=== PATIENT | female | born 1945 | race Caucasian/White ===

== ENCOUNTER → 2020-06-14 12:18 | Outpatient (CLI) | payer MEDICARE, SELFPAY ==
--- NOTE | ~2020-06-14 | MM_ITS ---
EXAMINATION: MM screening paula BI w narda HISTORY: Screening mammogram, family history of breast cancer in her mother. TECHNIQUE: Craniocaudal and mediolateral oblique 3-D tomosynthesis images were obtained and synthetic 2-D images were generated. CAD analysis was submitted and interpreted. COMPARISON: 07/14/2018, 06/24/2017, 06/21/2016 BREAST PARENCHYMAL COMPOSITION: There are scattered areas of fibroglandular density. FINDINGS: Scattered benign-appearing calcifications are present. There is no evidence of suspicious m ass, calcification, or architectural distortion to suggest malignancy in either breast. There has bee n no suspicious interval change. IMPRESSION: 1. No mammographic evidence of malignancy. 2. Recommend routine screening mammography in one year. BI-RADS Category 2: Benign finding(s). Reviewed, dictated and finalized at location A. ANALYST
== END ==
PROVIDERS: PCP Family Medicine; Visit Provider Family Medicine
DX: Z12.31 Encounter for screening mammogram for malignant neoplasm of breast (principal)
CPT/HCPCS: 77063; 77067

== ENCOUNTER 2020-06-15 09:00 | Outpatient (CLI) | payer MEDICARE, SELFPAY ==
[2020-06-15 09:15] LABS: Basophils Absolute Auto 0.1 K/mm3 (0.0-0.1); Basophils Percent Auto 0.9 % (0.2-1.2); Eosinophils Absolute Auto 0.2 K/mm3 (0-0.3); Eosinophils Percent Auto 4.1 % (0-4.4); Hematocrit 40.9 % (37.0-47.0); Hemoglobin 13.1 g/dL (12.0-15.0); Immature Granulocyte Absolute 0.01 K/mm3 (0.00-0.031); Immature Granulocyte Percent A 0.2 % (0-0.5); Lymphocytes Absolute Auto 1.21 K/mm3 (0.9-3.2); Lymphocytes Percent Auto 22.8 % (18.3-44.2); Mean Corpuscular Volume 93.8 fl (80-100); Mean Platelet Volume 11.2 fl (7.4-10.4); Monocytes Absolute Auto 0.4 K/mm3 (0.1-0.6); Monocytes Percent Auto 7.7 % (2.6-8.5); Neutrophils Absolute Auto 3.4 K/mm3 (1.3-6.7); Neutrophils Percent Auto 64.3 % (45.5-73.1); Platelet Count Result 251 k/mm3 (150-375); Red Blood Count 4.36 M/mm3 (4.2-5.4); Red Cell Distribution Width 14.5 % (11.5-14.5); White Blood Count 5.3 K/mm3 (4.5-10.0)
[2020-06-15 09:31] LABS: Alanine Aminotransferase 15 U/L (4-35); Albumin Level 4.4 g/dL (3.5-5.1); Alkaline Phosphatase 66 U/L (38-126); Anion Gap 6 mmol/L (8-16); Aspartate Amino Transferase 30 U/L (14-36); Bilirubin,Total 0.7 mg/dL (0.2-1.3); Blood Urea Nitrogen 14 mg/dL (7-17); Calcium 9.6 mg/dL (8.4-10.2); Carbon Dioxide 34 mmol/L (22-30); Chloride 103 mmol/L (98-107); Cholesterol 211 mg/dL (0-200); Estimated Glomerular Filt Rate > 60; Glucose 98 mg/dL (65-105); HDL Direct 65 mg/dL; Potassium 4.3 mmol/L (3.4-5.0); Sodium 143 mmol/L (137-145); Triglycerides 132 mg/dL (<150)
[2020-06-15 09:42] LABS: LDL Cholesterol Direct 116 mg/dL
[2020-06-15 10:19] LABS: Vitamin B12 > 1000.0 pg/mL (239-931)
== END 2020-06-15 09:01 | disposition home or self-care (01) ==
PROVIDERS: PCP Family Medicine; Visit Provider Family Medicine
DX: D64.9 Anemia, unspecified (principal); I10 Essential (primary) hypertension; E78.2 Mixed hyperlipidemia
CPT/HCPCS: 36415; 80053; 80061; 82607; 85025

== ENCOUNTER 2021-08-25 20:25 | Emergency (ER) | payer OTHER, SELFPAY ==
[2021-08-25 20:28] VITALS: BP 152/70; PULSE 85; RESP 17; TEMP 36.8; O2SAT 97
--- NOTE | 2021-08-25 20:58 | ED.FEMALEGU ---
HPI - Female Genitourinary General Chief complaint: Urogenital-Female Stated complaint: hematuria x today Time Seen by Provider: 08/25/21 20:49 Source: patient History of Present Illness HPI Narrative: Patient presents with hematuria frequency and urgency. Patient ports her symptoms started today she was concerned so came to the ER for evaluation. Denies any fevers, nausea, vomiting she denies any back pain. She is found she has a urinary tract infection. Related Data Home Medications Medication Instructions Recorded Confirmed escitalopram oxalate 5 mg PO DAILY PRN 08/25/21 lisinopril 10 mg PO DAILY 08/25/21 Allergies Allergy/AdvReac Type Severity Reaction Status Date / Time Sulfa (Sulfonamide Allergy Other Verified 08/25/21 20:31 Antibiotics) Review of Systems Review of Systems: CONSTITUTIONAL: Denies fever, chills, or sweats. EYES: Denies visual changes, redness, or discharge. ENT: Denies rhinorrhea, congestion, sore throat, or otalgia. CARDIOVASCULAR: Denies chest pain, palpitations, or edema. RESPIRATORY: Denies cough or dyspnea. GASTROINTESTINAL: Denies abdominal pain, nausea, vomiting, or diarrhea. GENITOURINARY: Denies dysuria or hematuria. SKIN: Denies rash or itching. MUSCULOSKELETAL: Denies back pain, joint pain, or myalgia. NEUROLOGIC: Denies headache, numbness, dizziness, or weakness. PSYCHIATRIC: Denies anxiety or depression. All systems reviewed & are unremarkable except as noted in HPI and below PMFSH Past Medical History Medical History (Updated 08/25/21 @ 22:13 by Cristobal Lopez MD) Hypertension Social History Social History (Updated 08/25/21 @ 21:00 by Cristobal Lopez MD) Smoking status: Never smoker Substance use: never Exam Narrative: GENERAL: Well-appearing, well-nourished, and in no acute distress. HEAD: Normocephalic, atraumatic. EYES: PERRLA and EOMI. ENT: Nares clear, no rhinorrhea or epistaxis. Mucous membranes moist. NECK: Supple. No masses. No JVD ABDOMEN: Minimal suprapubic pain no CVA tenderness abdomen is soft nondistended EXTREMITIES: Normal range of motion. No edema. SKIN: Warm, dry, no rash. NEURO: No focal deficits. Alert and oriented x3. PSYCH: Normal mood and affect. Course Reevaluation(s) Reevaluation #1: Patient was comfortable results reviewed with patient. Patient comfortable outpatient plan. Date: 08/25/21 Time: 22:11 Vital Signs Vital signs: Vital Signs Temperature 36.8 C 08/25/21 20:28 Pulse Rate 85 08/25/21 20:28 Respiratory Rate 17 08/25/21 20:28 Blood Pressure 152/70 H 08/25/21 20:28 Pulse Oximetry 97 08/25/21 20:28 Temperature 37.1 C 08/25/21 22:22 Pulse Rate 74 08/25/21 22:22 Respiratory Rate 16 08/25/21 22:22 Blood Pressure 138/82 08/25/21 22:22 Pulse Oximetry 98 08/25/21 22:22 MDM - Female Genitourinary MDM Narrative Medical decision making narrative: H&P as above, vss, pt looks clinically well, exam reassuring, UA concerning for infection, additional labs/img considered, symptomatic relief available as needed, on reevaluation pt continues to looks clinically well. Suspect UTI, dns pyelonephritis, severe sepsis, severe dehydration. plan to tx/monitor as op w/ pcm f/u findings/plan discussed with pt, pt agree/comfortable with plan, return precautions given Lab Data Attestation: I reviewed the patient's lab results. Labs: Lab Results 08/25/21 Range/Units 21:13 Urine Color Red H (Yellow) Urine Appearance Turbid H (Clear) Urine pH 5.0 (5.0-9.0) Ur Specific [place] 1.006 (1.001-1.035) Urine Protein 1+ H (Negative) mg/dL Urine Glucose (UA) Negative (Negative) mg/dL Urine Ketones Negative (Negative) mg/dL Ur Blood (Man) 3+ H (Negative) Urine Nitrate Negative (Negative) Urine Bilirubin Negative (Negative) Urine Urobilinogen Negative (<2.0) mg/dL Leukocyte Esterase Rfl Trace H (Negative) MEAGHAN/UL Urine RBC >75 H (0-2) /hpf Urine WBC >7
[2021-08-25 21:45] LABS: Add Urine Microscopic? YES; Bacteria Urine Trace /hpf; Bilirubin Urine Negative (Negative); Blood Urine 3+ (Negative); Glucose Urine UA Negative (Negative); Ketones Urine Negative (Negative); Leukocyte Esterase Ur Trace LEU/UL (Negative); Nitrate Urine Negative (Negative); Protein Urine 1+ mg/dL (Negative); RBC Urine >75 /hpf (0-2); Specific Grav Ur 1.006 (1.001-1.035); Urobilinogen Urine Negative mg/dL (<2.0); WBC Urine >75 /hpf
[2021-08-25 21:46] LABS: Appearance Urine Turbid (Clear); Color Urine Red (Yellow)
[2021-08-25 22:22] VITALS: BP 138/82; PULSE 74; RESP 16; TEMP 37.1; O2SAT 98
== END 2021-08-25 22:23 | disposition home or self-care (01) ==
PROVIDERS: Emergency Provider Emergency Medicine; PCP Family Medicine
DX: N30.01 Acute cystitis with hematuria (principal); I10 Essential (primary) hypertension
CPT/HCPCS: 81001; 87077; 87086; 87186; 99283

== ENCOUNTER 2022-08-03 17:00 | Emergency (ER) | payer MEDICARE, SELFPAY ==
--- NOTE | ~2022-08-03 | XR_ITS ---
EXAMINATION: XR chest 1V portable Exam Date/Time: 08/03/2022 19:45 TOOL SHARPENER HISTORY: Covid +, SOB Comparison: 03/06/2019. RESULT: Lines, tubes, and devices: None. Lungs and pleura: No focal consolidation, effusion, or pneumothorax. Right lung granuloma. Cardiomediastinal silhouette: Stable. Large hiatal hernia. Other: No acute osseous or upper abdominal finding. IMPRESSION: No acute cardiopulmonary process. Reviewed, dictated and finalized at location K. SHARPENER
[2022-08-03 17:13] VITALS: BP 152/79; PULSE 87; RESP 18; TEMP 36.4; O2SAT 96
[2022-08-03 17:21] LABS: Basophils Percent Auto 0.4 % (0.2-1.2); Eosinophils Absolute Auto 0.1 K/mm3 (0-0.3); Eosinophils Percent Auto 0.6 % (0-4.4); Hematocrit 39.5 % (37.0-47.0); Hemoglobin 12.6 g/dL (12.0-15.0); Immature Granulocyte Absolute 0.02 K/mm3 (0.00-0.031); Immature Granulocyte Percent A 0.2 % (0-0.5); Lymphocytes Absolute Auto 0.43 K/mm3 (0.9-3.2); Lymphocytes Percent Auto 4.8 % (18.3-44.2); Mean Corpuscular HGB Conc 31.9 g/dl (32-36); Mean Corpuscular Hemoglobin 30.4 pg (26-34); Mean Corpuscular Volume 95.2 fl (80-100); Mean Platelet Volume 10.9 fl (7.4-10.4); Monocytes Absolute Auto 0.5 K/mm3 (0.1-0.6); Monocytes Percent Auto 5.8 % (2.6-8.5); Neutrophils Absolute Auto 7.9 K/mm3 (1.3-6.7); Neutrophils Percent Auto 88.2 % (45.5-73.1); Platelet Count Result 213 k/mm3 (150-375); Red Blood Count 4.15 M/mm3 (4.2-5.4); Red Cell Distribution Width 14.2 % (11.5-14.5); White Blood Count 8.9 K/mm3 (4.5-10.0)
[2022-08-03 17:31] LABS: Alanine Aminotransferase 18 U/L (6-35); Albumin Level 4.3 g/dL (3.5-5.1); Alkaline Phosphatase 65 U/L (38-126); Anion Gap 8 mmol/L (8-16); Aspartate Amino Transferase 26 U/L (14-36); Bilirubin,Total 0.6 mg/dL (0.2-1.3); Blood Urea Nitrogen 9 mg/dL (7-17); Calcium 8.6 mg/dL (8.4-10.2); Carbon Dioxide 25 mmol/L (22-30); Chloride 100 mmol/L (98-107); Estimated CRCL calculation 54 ml/min; Estimated Glomerular Filt Rate > 60; Glucose 119 mg/dL (65-110); Lipase 66 U/L (23-300); Potassium 3.9 mmol/L (3.4-5.0); Sodium 133 mmol/L (137-145)
[2022-08-03 17:56] LABS: Influenza A QL RT-PCR Negative (Negative); Influenza B QL RT-PCR Negative (Negative); SARS-CoV-2 RNA PCR Positive
--- NOTE | 2022-08-03 19:10 | ED.GENADULT ---
HPI - General Adult General Chief complaint: Unspecified Stated complaint: flu like symptoms Time Seen by Provider: 08/03/22 19:07 History of Present Illness HPI narrative: This is a 76-year-old female presenting ED with 1 day of flu-like symptoms. Headaches include headache, body aches, chills, nausea without vomiting And fatigue. Patient denies vomiting, diarrhea, chest pain, difficulty breathing or lower extremity edema. Patient denies sick contacts at home. She is vaccinated against flu and COVID. Patient notes normal p.o. intake. Patient came to the hospital because her brother encouraged her to get checked out. Related Data Allergies Allergy/AdvReac Type Severity Reaction Status Date / Time Sulfa (Sulfonamide Allergy Other Verified 10/29/21 13:09 Antibiotics) [facility] Past Medical History Medical History Anemia Arthritis BP (high blood pressure) Endometriosis HH (hiatus hernia) Hypertension MDD (major depressive disorder), recurrent episode Mixed hyperlipidemia Surgical History Surgical History S/P QUINTON-BSO Family History Family History Mother Family history of malignant neoplasm of breast in first degree relative Family history of heart disease in male family member before age 55 Social History Social History Social History: Years smoked: 2 Smoking status: Never smoker Tobacco type: cigarettes Second hand tobacco smoke exposure: No Alcohol intake: current Alcohol use details: occasionally Substance use: never Substance use type: does not use Gender identity (if verbalized by the patient): Female Sexual Orientation (if Verbalized by the Patient): Straight or Heterosexual Exam Narrative: APPEARANCE: No apparent distress. Head: atraumatic. EYES: EOMI, NOSE: Atraumatic NECK: Trachea midline RESPIRATORY: No increased rate of breathing, Clear to auscultation bilaterally, no accessory muscle use, speaking full sentences CARDIOVASCULAR: RRR, no peripheral edema ABDOMINAL: Non-distended, soft nontender no guarding or rebound MUSCULOSKELETAl: No obvious deformities NEURO: Alert. Moving 4/4 extremities SKIN:: Warm, dry. Normal color PSYCHIATRIC: Normal affect Course Vital Signs Vital signs: Vital Signs Temperature 97.5 F L 08/03/22 17:13 Pulse Rate 87 08/03/22 17:13 Respiratory Rate 18 08/03/22 17:13 Blood Pressure 152/79 H 08/03/22 17:13 Pulse Oximetry 96 08/03/22 17:13 Oxygen Delivery Room Air 08/03/22 17:13 Temperature 97.5 F L 08/03/22 17:13 Pulse Rate 87 08/03/22 17:13 Respiratory Rate 18 08/03/22 17:13 Blood Pressure 152/79 H 08/03/22 17:13 Pulse Oximetry 96 08/03/22 17:13 Oxygen Delivery Room Air 08/03/22 17:13 Medical Decision Making MDM Narrative Medical decision making narrative: Presentation: 76-year-old presenting with 1 day of flu-like symptoms. DDX includes but is not limited to: Flu, COVID, viral illness, pneumonia Co-morbidities complicating care: advanced age, hypertension External Chart Review: EKGs from outside facility Hx from independent Sources: none Discussion of Management/Consultants: Independent interpretation of studies: CBC was within normal limits without white count. Basic metabolic panel showed hyponatremia. Viral swabs were positive for COVID-19. Chest x-ray showed no acute cardiopulmonary process. Independent EKG interpretation: Rhythm [sinus], Rate 82[], [place] -[normal], [place] -[normal], QRS [narrow], QTC [normal], T waves -[negative for concerning inversions], ST Segments - [Negative for concerning elevations] Final interpretations: [Normal Sinus Rhythm] Dx tests considered but not ordered: the setting of COVID-19 infectionCT PE was considered but the patient is not
--- NOTE | 2022-08-03 19:56 | ECG_ITS ---
Measurements Intervals [place] Rate: 82 P: 36 MD: 135 QRS: 44 QRSD: 88 T: 30 QT: 363 QTc: 426 Interpretive Statements SINUS RHYTHM BASELINE ARTIFACT- I, II, III, AVR, AVL, AVF NORMAL ECG NO PREVIOUS ECG AVAILABLE FOR COMPARISON Electronically Signed On 08-03-2022 20:44:38 PRESCHOOL ASSISTANT by Shaun Hamilton D.O.
[2022-08-03 20:19] LABS: Add Urine Microscopic? YES; Appearance Urine Clear (Clear); Bilirubin Urine 1+ (Negative); Blood Urine 2+ (Negative); Color Urine Yellow (Yellow); Glucose Urine UA Negative (Negative); Ketones Urine 2+ mg/dL (Negative); Leukocyte Esterase Ur Negative LEU/UL (Negative); Nitrate Urine Negative (Negative); Protein Urine Trace mg/dL (Negative); Specific Grav Ur >= 1.030 (1.001-1.035); Urobilinogen Urine 0.2 mg/dL (<2.0)
[2022-08-03 20:30] LABS: Mucus Urine Heavy /lpf; RBC Urine 21-50 /hpf (0-2); Squamous Epithelial Cell Urine Rare /hpf (Few)
--- NOTE | 2022-08-03 20:41 | ED.GENADULT ---
HPI - General Adult General Chief complaint: Unspecified Stated complaint: flu like symptoms Time Seen by Provider: 08/03/22 19:07 Related Data Allergies Allergy/AdvReac Type Severity Reaction Status Date / Time Sulfa (Sulfonamide Allergy Other Verified 10/29/21 13:09 Antibiotics) [facility] Past Medical History Medical History Anemia Arthritis BP (high blood pressure) Endometriosis HH (hiatus hernia) Hypertension MDD (major depressive disorder), recurrent episode Mixed hyperlipidemia Surgical History Surgical History S/P QUINTON-BSO Family History Family History Mother Family history of malignant neoplasm of breast in first degree relative Family history of heart disease in male family member before age 55 Social History Social History Social History: Years smoked: 2 Smoking status: Never smoker Tobacco type: cigarettes Second hand tobacco smoke exposure: No Alcohol intake: current Alcohol use details: occasionally Substance use: never Substance use type: does not use Gender identity (if verbalized by the patient): Female Sexual Orientation (if Verbalized by the Patient): Straight or Heterosexual Course Vital Signs Vital signs: Vital Signs Temperature 97.5 F L 08/03/22 17:13 Pulse Rate 87 08/03/22 17:13 Respiratory Rate 18 08/03/22 17:13 Blood Pressure 152/79 H 08/03/22 17:13 Pulse Oximetry 96 08/03/22 17:13 Oxygen Delivery Room Air 08/03/22 17:13 Temperature 97.5 F L 08/03/22 17:13 Pulse Rate 87 08/03/22 17:13 Respiratory Rate 18 08/03/22 17:13 Blood Pressure 152/79 H 08/03/22 17:13 Pulse Oximetry 96 08/03/22 17:13 Oxygen Delivery Room Air 08/03/22 17:13 Medical Decision Making Vital Signs Vital Signs: Vital Signs Temperature 97.5 F L 08/03/22 17:13 Pulse Rate 87 08/03/22 17:13 Respiratory Rate 18 08/03/22 17:13 Blood Pressure 152/79 H 08/03/22 17:13 Pulse Oximetry 96 08/03/22 17:13 Oxygen Delivery Room Air 08/03/22 17:13 Temperature 97.5 F L 08/03/22 17:13 Pulse Rate 87 08/03/22 17:13 Respiratory Rate 18 08/03/22 17:13 Blood Pressure 152/79 H 08/03/22 17:13 Pulse Oximetry 96 08/03/22 17:13 Oxygen Delivery Room Air 08/03/22 17:13 Lab Data 08/03/22 17:15 08/03/22 17:15 Labs: Lab Results 08/03/22 08/03/22 08/03/22 Range/Units 17:15 17:15 17:15 WBC 8.9 (4.5-10.0) K/mm3 RBC 4.15 L (4.2-5.4) M/mm3 Hgb 12.6 (12.0-15.0) g/dL Hct 39.5 (37.0-47.0) % MCV 95.2 (80-100) fl MCH 30.4 (26-34) pg MCHC 31.9 L (32-36) g/dl RDW 14.2 (11.5-14.5) % Plt Count 213 (150-375) k/mm3 MPV 10.9 H (7.4-10.4) fl Immature Gran % (Auto) 0.2 (0-0.5) % Neut % (Auto) 88.2 H (45.5-73.1) % Lymph % (Auto) 4.8 L (18.3-44.2) % [place] % (Auto) 5.8 (2.6-8.5) % Eos % (Auto) 0.6 (0-4.4) % Baso % (Auto) 0.4 (0.2-1.2) % Lymph # (Auto) 0.43 L (0.9-3.2) K/mm3 [place] # (Auto) 0.5 (0.1-0.6) K/mm3 Eos # (Auto) 0.1 (0-0.3) K/mm3 Baso # (Auto) 0.0 (0.0-0.1) K/mm3 Abs Immat Gran (auto) 0.02 (0.00-0.031) K/mm3 Absolute Neuts (auto) 7.9 H (1.3-6.7) K/mm3 Absolute Nucleated RBC 0.0 (0.0-0.012) K/mm3 Nucleated RBC % 0.0 (0.0-0.2) % Sodium 133 L (137-145) mmol/L Potassium 3.9 (3.4-5.0) mmol/L Chloride 100 (98-107) mmol/L Carbon Dioxide 25 (22-30) mmol/L Anion Gap 8 (8-16) mmol/L BUN 9 D (7-17) mg/dL Creatinine 0.70 (0.7-1.0) mg/dL Estim Creat Clear Calc 54 ml/min Estimated GFR > 60 (59 - ) Glucose 119 H (65-110) mg/dL Calcium 8.6 (8.4-10.2) mg/dL Total Bilirubin 0.6 (0.2-1.3) mg/dL AST 26 (14-36) U/L ALT
== END 2022-08-03 20:58 | disposition home or self-care (01) ==
PROVIDERS: Emergency Medicine; Emergency Provider Emergency Medicine; PCP Family Medicine
DX: U07.1 COVID-19 (principal); I10 Essential (primary) hypertension; E78.2 Mixed hyperlipidemia; Z90.710 Acquired absence of both cervix and uterus; M19.90 Unspecified osteoarthritis, unspecified site; Z90.722 Acquired absence of ovaries, bilateral; Z90.79 Acquired absence of other genital organ(s); Z86.2 Personal history of diseases of the blood and blood-forming organs and certain disorders involving the immune mechanism
CPT/HCPCS: 36415; 71045; 80053; 81001; 83690; 85025; 87086; 87088; 87636; 93005; 99283

== ENCOUNTER → 2023-06-09 11:03 | Outpatient (CLI) | payer MEDICARE, SELFPAY ==
--- NOTE | ~2023-06-09 | MM_ITS ---
EXAMINATION: MM screening paula BI w narda HISTORY: Screening mammogram, family history of breast cancer in her mother. TECHNIQUE: Craniocaudal and mediolateral oblique 3-D tomosynthesis images were obtained and synthetic 2-D images were generated. CAD analysis was submitted and interpreted. COMPARISON: 06/14/2020, 07/14/2018, 06/24/2017 BREAST PARENCHYMAL COMPOSITION: There are scattered areas of fibroglandular density. FINDINGS: Scattered benign-appearing calcifications are present. No suspicious mass, calcification, o r architectural distortion are identified in either breast to suggest malignancy. There has been no s uspicious interval change. IMPRESSION: 1. No mammographic evidence of malignancy. 2. Recommend routine screening mammography in one year. BI-RADS Category 2: Benign finding(s). Reviewed, dictated and finalized at location A. A CLERK
== END ==
PROVIDERS: PCP Nurse Practitioner Gerontology; Visit Provider Nurse Practitioner Gerontology
DX: Z12.31 Encounter for screening mammogram for malignant neoplasm of breast (principal)
CPT/HCPCS: 77063; 77067